=== PATIENT | female | born 1940 | race Two or more races ===

== ENCOUNTER → 2018-08-09 | Emergency (ER) | payer OTHER | END | disposition left against medical advice (07) | LOC: ER 21:50 | DX: S31.809A Unspecified open wound of unspecified buttock, initial encounter (principal); Z53.21 Procedure and treatment not carried out due to patient leaving prior to being seen by health care provider; X58.XXXA Exposure to other specified factors, initial encounter; Y93.89 Activity, other specified; Y99.8 Other external cause status; Y92.89 Other specified places as the place of occurrence of the external cause ==

== ENCOUNTER 2018-08-16 08:18 | Emergency (ER) | payer OTHER ==
[~2018-08-16] VITALS: Ht 160 cm; Wt 40.8 kg
[2018-08-16] MEDS: LORazepam 2MG/ML-1ML VIAL ONE (08:31)
[2018-08-16] MEDS: SODIUM CHLORIDE 0.9% 1,000 ML IV ONE (10:20)
[2018-08-16] MEDS: cefTRIAXone 1GM/50ML D5W 50 ML IV ONE (10:20)
[2018-08-16] MEDS: LORazepam 2MG/ML-1ML VIAL IV ONE (10:21)
[2018-08-16 10:30] LABS: Urine Bacteria FEW /hpf (None Seen); Urine Blood Negative /uL (Negative); Urine Mucus FEW (None Seen); Urine Specific Gravity 1.007 (1.001-1.035); Urine WBC 1 /hpf (0 - 5)
[2018-08-16 10:49] LABS: Eosinophils # (auto) 0 uL; Eosinophils % (auto) 0.1 % (0.0-7.0); Lymphocytes # (auto) 0.6 uL; Neutrophils # (auto) 18.7 uL
[2018-08-16 10:51] LABS: Basophils # (auto) 0 uL; Basophils % (auto) 0.2 % (0.0-2.0); Hematocrit 30.4 % (36.0-46.0); Hemoglobin 9.5 g/dL (12.2-16.2); Lymphocytes % (auto) 2.9 % (10.0-50.0); Mean Corpuscular Hemoglobin 22.3 pg (28.0-32.0); Mean Corpuscular Hgb Conc. 31.2 g/dL (32.0-36.0); Mean Corpuscular Volume 71.6 fL (80.0-100.0); Monocytes # (auto) 0.3 uL; Monocytes % (auto) 1.7 % (0.0-12.0); Neutrophils % (auto) 95.1 % (37.0-80.0); Red Blood Cells 4.24 10^6/uL (4.0-5.20); Red Cell Distribution Width 17.6 % (11.8-14.3); White Blood Cell 19.7 10^3/uL (4.4-10.8)
[2018-08-16 11:04] LABS: Alanine Aminotransferase < 6 U/L (13-56); Albumin 2.2 g/dL (3.4-5.0); Anion Gap 10 (5-15); Aspartate Aminotransferase 16 U/L (15-37); BUN/Creatinine Ratio 7.6; Blood Urea Nitrogen 9 mg/dL (7-18); Calcium 8.6 mg/dL (8.5-10.1); Carbon Dioxide 22 mmol/L (21-32); Chloride 104 mmol/L (98-107); GFR African American 56 mL/min; GFR Non-African American 47 mL/min; Glucose 120 mg/dL (74-106); Potassium 3.4 mmol/L (3.5-5.1); Sodium 136 mmol/L (136-145)
[2018-08-16 11:05] LABS: Lactic Acid w/Reflex 2.1 mmol/L (0.4-2.0)
[2018-08-16 11:08] LABS: Alkaline Phosphatase 92 U/L (45-117); Bilirubin, Total 0.3 mg/dL (0.2-1.0); Total Protein 8.3 g/dL (6.4-8.2)
[2018-08-16 11:08] LABS: Platelet Count (auto) 828 10^3/uL (140-450)
[2018-08-16 11:12] LABS: INR 1.13 (0.9-1.15); Partial Thromboplastin Time 29.3 sec (23.78-33.04)
[2018-08-16] MEDS: VANCOMYCIN 1GM/250ML 250 ML IV ONE (13:37)
[2018-08-16 15:36] VITALS: BP 129/98
== END 2018-08-16 15:40 | disposition short-term general hospital (02) ==
LOC: ER 08:18 → EDBD 08:18 → ER 15:40
DX: A41.9 Sepsis, unspecified organism (principal); R41.82 Altered mental status, unspecified; I13.0 Hypertensive heart and chronic kidney disease with heart failure and stage 1 through stage 4 chronic kidney disease, or unspecified chronic kidney disease; N18.4 Chronic kidney disease, stage 4 (severe); G30.9 Alzheimer's disease, unspecified; F02.80 Dementia in other diseases classified elsewhere, unspecified severity, without behavioral disturbance, psychotic disturbance, mood disturbance, and anxiety; Z99.2 Dependence on renal dialysis
CPT/HCPCS: 36415; 51702; 70450; 71045; 80053; 81001; 83605; 83880; 84484; 85025; 85610; 85730; 86850; 86900; 86901; 87040; 87077; 87086; 87186; 87205; 93005; 96365; 96367; 96375; 99285; J0696; J2060; J3370; J7030